=== PATIENT | female | born 1955 | race African-American/Black ===

== ENCOUNTER 2021-10-05 12:14 | Inpatient (IN) ==
[2021-10-05 13:15] LABS: Basophils % 0.3 % (0.0-0.8); Eosinophils % 0.2 % (0.00-10.9); Hematocrit 21.4 VOL% (35.7-47.0); Hemoglobin 6.6 GM/DL (12.0-16.0); Immature Granulocytes % 0.9 %; Immature Granulocytes Absolute 0.08 #; Lymphocytes # 1.3 10*3/uL (1.4-4.0); Lymphocytes % 14.9 % (21.3-54.2); Mean Corpuscular HGB Conc 30.8 GM/DL (32-36); Mean Corpuscular Volume 85.6 FL (87-102); Mean Platelet Volume 11.5 FL (9.6-12.0); Monocytes # 0.3 10*3/uL (0.11-0.8); Monocytes % 3.5 % (1.7-12.7); Neutrophils % 80.2 % (38.7-73.9); Platelet Count 203 T/CUMM (130-400); Red Cell Distribution Width 13.4 % (9.3-17.3); White Blood Count 8.9 T/CUMM (4-12)
[2021-10-05 13:35] LABS: Alanine Aminotransferase 13 U/L (13-56); Albumin 2.6 G/DL (3.4-5.0); Alkaline Phosphatase 60 U/L (45-117); Aspartate Amino Transferase 9 U/L (0-37); Bilirubin,Total < 0.39 MG/DL (0.20-1.00); Blood Urea Nitrogen 107 MG/DL (7-18); Calcium 9.1 MG/DL (8.5-10.1); Carbon Dioxide 19 MMOL/L (21-32); Chloride 104 MMOL/L (98-107); Glucose 301 MG/DL (74-106); Osmolality,Calculated 314.1 MOS/KG (273-304); Sodium 135 MMOL/L (136-145); Total Protein 5.9 G/DL (6.4-8.2)
[2021-10-05] MEDS ORDERED: LACTATED RINGERS 1,000 ML IV ONE (13:39)
[2021-10-05] MEDS ORDERED: PANTOPRAZOLE INJ 80 MG in SODIUM CHLORIDE 0.9% 100 ML IV STA (13:52)
[2021-10-05] MEDS ORDERED: ACETAMINOPHEN 325 MG TABLET PO PRN (14:20)
[2021-10-05] MEDS ORDERED: GLUCAGON 1 MG VIAL IM PRN (14:20)
[2021-10-05] MEDS ORDERED: ONDANSETRON 4 MG/2 ML VIAL IV PRN (14:20)
[2021-10-05] MEDS ORDERED: SODIUM CHLORIDE 0.9% 1,000 ML IV PRN (14:20)
[2021-10-05] MEDS ORDERED: hydrALAZINE 20 MG/1 ML VIAL IV PRN (14:20)
[2021-10-05] MEDS ORDERED: PANTOPRAZOLE 40 MG VIAL IV ONE (14:25)
[2021-10-05] MEDS ORDERED: FLUTICASONE 50 MCG NASAL SPRAY 16 GM BOTTLE BOTH NARES PRN (14:37)
[2021-10-05 14:44] LABS: Amorphous Crystals,Urine Occasional /HPF (Few); RBC,Urine <1 /HPF (0-4); Squamous Epithelial Cell,Urine Occasional /HPF (0-10); Urine Color Light Yellow (Yellow)
[2021-10-05 14:45] LABS: Bilirubin,Urine Negative (Negative); Blood, Urine Negative (Negative); Glucose,Urine (UA) 500 mg/dL (Negative); Ketones,Urine Negative (Negative); Nitrite,Urine Negative (Negative); Protein,Urine Negative (Negative); Urine Appearance Slightly Cloudy (Clear); Urine Urobilinogen 0.2 eU/dL (<2.0)
[2021-10-05] MEDS ORDERED: DEXTROSE 10% 250 ML BAG IV PRN (14:49)
[2021-10-05 14:50] LABS: Barbiturates Screen,Urine Negative (Negative); Benzodiazepines Screen,Urine Negative (Negative); Cannabinoid Screen,Urine Negative (Negative); Opiate Screen,Urine Negative (Negative); Phencyclidine Screen,Urine Negative (Negative)
[2021-10-05] MEDS ORDERED: PANTOPRAZOLE INJ 200 MG in SODIUM CHLORIDE 0.9% 250 ML IV SCH (15:00)
[2021-10-05 16:03] LABS: % Iron Saturation 20.6 % (18-50)
[2021-10-05] MEDS: INSULIN LISPRO 100 UNIT/ML SUBCUT SCH ×2 (17:40→20:38)
[2021-10-05] MEDS: FERROUS SULFATE 325 MG TABLET PO SCH ×2 (17:40→20:39)
[2021-10-05] MEDS: SODIUM CHLORIDE 0.9% 1,000 ML IV SCH ×2 (18:29→23:30)
[2021-10-05 19:57] LABS: Hematocrit 25.5 VOL% (35.7-47.0); Hemoglobin 7.6 GM/DL (12.0-16.0)
[2021-10-05] MEDS: INSULIN GLARGINE 100 UNIT/ML SUBCUT SCH (20:38)
[2021-10-06 02:11] LABS: Hematocrit 26.5 VOL% (35.7-47.0); Hemoglobin 8.6 GM/DL (12.0-16.0)
[2021-10-06 02:31] LABS: Calcium 9.1 MG/DL (8.5-10.1); Osmolality,Calculated 305.5 MOS/KG (273-304); Potassium 3.3 MMOL/L (3.5-5.1); Risk Ratio 2.56
[2021-10-06 05:14] LABS: Basophils % 0.4 % (0.0-0.8); Eosinophils # 0.1 10*3/uL (0.0-0.87); Eosinophils % 1.1 % (0.00-10.9); Hematocrit 25.5 VOL% (35.7-47.0); Hemoglobin 8.3 GM/DL (12.0-16.0); Immature Granulocytes % 0.6 %; Immature Granulocytes Absolute 0.05 #; Lymphocytes # 1.9 10*3/uL (1.4-4.0); Mean Corpuscular HGB Conc 32.5 GM/DL (32-36); Mean Corpuscular Volume 85.9 FL (87-102); Mean Platelet Volume 11.8 FL (9.6-12.0); Monocytes # 0.5 10*3/uL (0.11-0.8); Monocytes % 5.6 % (1.7-12.7); Neutrophils % 69.3 % (38.7-73.9); Platelet Count 172 T/CUMM (130-400); Red Blood Count 2.97 MC/CUMM (3.8-5.5); Red Cell Distribution Width 14.1 % (9.3-17.3); White Blood Count 8.3 T/CUMM (4-12)
[2021-10-06] MEDS: SODIUM CHLORIDE 0.9% 1,000 ML IV SCH ×2 (06:00→21:38)
[2021-10-06 07:57] LABS: Hemoglobin 9.1 GM/DL (12.0-16.0)
[2021-10-06] MEDS ORDERED: POTASSIUM CHLORIDE 20 MEQ TABLET PO ONE (08:00)
[2021-10-06] MEDS: amLODIPine 10 MG TABLET PO SCH (08:54)
[2021-10-06] MEDS: INSULIN LISPRO 100 UNIT/ML SUBCUT SCH ×4 (08:55→21:37)
[2021-10-06] MEDS: PANTOPRAZOLE 40 MG VIAL IV SCH ×2 (10:14→21:36)
[2021-10-06] MEDS: INSULIN GLARGINE 100 UNIT/ML SUBCUT SCH (21:37)
[2021-10-07] MEDS: SODIUM CHLORIDE 0.9% 1,000 ML IV SCH ×3 (00:23→12:22)
[2021-10-07 04:54] LABS: Basophils % 0.4 % (0.0-0.8); Eosinophils # 0.2 10*3/uL (0.0-0.87); Hematocrit 26.1 VOL% (35.7-47.0); Hemoglobin 8.3 GM/DL (12.0-16.0); Immature Granulocytes % 1.2 %; Immature Granulocytes Absolute 0.08 #; Lymphocytes # 2.1 10*3/uL (1.4-4.0); Lymphocytes % 31.2 % (21.3-54.2); Mean Corpuscular HGB Conc 31.8 GM/DL (32-36); Mean Corpuscular Volume 87.3 FL (87-102); Mean Platelet Volume 11.3 FL (9.6-12.0); Monocytes # 0.4 10*3/uL (0.11-0.8); Monocytes % 5.3 % (1.7-12.7); Neutrophils % 58.9 % (38.7-73.9); Platelet Count 169 T/CUMM (130-400); Red Blood Count 2.99 MC/CUMM (3.8-5.5); Red Cell Distribution Width 14.6 % (9.3-17.3); White Blood Count 6.8 T/CUMM (4-12)
[2021-10-07 05:07] LABS: Calcium 8.7 MG/DL (8.5-10.1); Osmolality,Calculated 290.1 MOS/KG (273-304); Potassium 3.5 MMOL/L (3.5-5.1)
[2021-10-07] MEDS: INSULIN LISPRO 100 UNIT/ML SUBCUT SCH ×2 (08:43→12:29)
[2021-10-07] MEDS ORDERED: LIDOCAINE 100 MG/5 ML SYRINGE ONE (09:22)
[2021-10-07] MEDS ORDERED: propofoL 200 MG/20 ML VIAL IV ONE (09:22)
[2021-10-07] MEDS ORDERED: LACTATED RINGERS 1,000 ML IV SCH (09:30)
[2021-10-07] MEDS: amLODIPine 10 MG TABLET PO SCH (10:49)
[2021-10-07] MEDS: PANTOPRAZOLE 40 MG VIAL IV SCH (10:53)
[2021-10-07 11:25] VITALS: BP 150/55
== END 2021-10-07 13:45 | disposition home or self-care (01) | DRG 813 ==
LOC: EDBD → EDUNIT# → N.ED 12:14 → N.3E 14:20 → SUATTDRO 14:20 → N.3E 17:10
PROVIDERS: ADMIT Internal Medicine; ATTEND Internal Medicine

== ENCOUNTER 2021-12-29 14:32 | Inpatient (IN) ==
[2021-12-29] MEDS ORDERED: FUROSEMIDE 40 MG/4 ML VIAL IV STA (17:08)
[2021-12-29] MEDS ORDERED: MORPHINE 2 MG/1 ML SYRINGE IV STA (17:08)
[2021-12-29] MEDS ORDERED: NITROGLYCERIN SL 0.4 MG TABLET SL PRN (17:09)
[2021-12-29 17:41] LABS: Basophils % 0.4 % (0.0-0.8); Eosinophils # 0.1 10*3/uL (0.0-0.87); Hematocrit 32.7 VOL% (35.7-47.0); Hemoglobin 9.9 GM/DL (12.0-16.0); Immature Granulocytes % 0.5 %; Immature Granulocytes Absolute 0.05 #; Lymphocytes # 1.3 10*3/uL (1.4-4.0); Lymphocytes % 13.6 % (21.3-54.2); Mean Corpuscular HGB Conc 30.3 GM/DL (32-36); Mean Corpuscular Volume 83.8 FL (87-102); Mean Platelet Volume 11.8 FL (9.6-12.0); Monocytes # 0.5 10*3/uL (0.11-0.8); Monocytes % 4.8 % (1.7-12.7); Neutrophils % 79.7 % (38.7-73.9); Platelet Count 173 T/CUMM (130-400); Red Cell Distribution Width 14.6 % (9.3-17.3); White Blood Count 9.8 T/CUMM (4-12)
[2021-12-29 17:56] LABS: Alanine Aminotransferase 43 U/L (13-56); Albumin 3.3 G/DL (3.4-5.0); Alkaline Phosphatase 150 U/L (45-117); Aspartate Amino Transferase 38 U/L (0-37); Bilirubin,Total < 0.39 MG/DL (0.20-1.00); Blood Urea Nitrogen 33 MG/DL (7-18); Calcium 9.3 MG/DL (8.5-10.1); Carbon Dioxide 31 MMOL/L (21-32); Chloride 105 MMOL/L (98-107); Glucose 190 MG/DL (74-106); Osmolality,Calculated 288.5 MOS/KG (273-304); Potassium 4.4 MMOL/L (3.5-5.1); Sodium 139 MMOL/L (136-145); Total Protein 7.3 G/DL (6.4-8.2)
[2021-12-29] MEDS ORDERED: ACETAMINOPHEN 325 MG TABLET PO PRN (18:43)
[2021-12-29] MEDS ORDERED: FLUTICASONE 50 MCG NASAL SPRAY 16 GM BOTTLE BOTH NARES PRN (18:43)
[2021-12-29] MEDS ORDERED: DEXTROSE 10% 250 ML BAG IV PRN (18:45)
[2021-12-29] MEDS ORDERED: MAGNESIUM SULF RIDER 2 GM/50 ML PREMIX IV PRN (18:45)
[2021-12-29] MEDS ORDERED: DEXTROSE 50% 25 GM/50 ML VIAL IV PRN (18:45)
[2021-12-29] MEDS ORDERED: ONDANSETRON 4 MG/2 ML VIAL IV PRN (18:45)
[2021-12-29] MEDS ORDERED: hydrALAZINE 20 MG/1 ML VIAL IV PRN (18:45)
[2021-12-29] MEDS ORDERED: MAGNESIUM SULF RIDER 4 GM/100 ML PREMIX IV PRN (18:45)
[2021-12-29] MEDS ORDERED: GLUCAGON 1 MG VIAL IM PRN ×2 (18:45)
[2021-12-29] MEDS: ALBUTEROL/IPRATROPIUM 3 ML NEB RESP TX SCH (20:30)
[2021-12-29] MEDS ORDERED: APIXABAN 5 MG TABLET PO SCH (21:00)
[2021-12-29] MEDS: PANTOPRAZOLE 40 MG TABLET PO SCH (21:21)
[2021-12-29] MEDS: FUROSEMIDE 40 MG/4 ML VIAL IV SCH (21:21)
[2021-12-29] MEDS: INSULIN LISPRO 100 UNIT/ML SUBCUT SCH (22:35)
[2021-12-30] MEDS: ALBUTEROL/IPRATROPIUM 3 ML NEB RESP TX SCH ×4 (00:20→19:15)
[2021-12-30 04:42] LABS: Basophils % 0.3 % (0.0-0.8); Eosinophils # 0.1 10*3/uL (0.0-0.87); Eosinophils % 2.3 % (0.00-10.9); Hematocrit 26.8 VOL% (35.7-47.0); Hemoglobin 8.1 GM/DL (12.0-16.0); Immature Granulocytes % 0.3 %; Immature Granulocytes Absolute 0.02 #; Lymphocytes # 1.4 10*3/uL (1.4-4.0); Lymphocytes % 22.9 % (21.3-54.2); Mean Corpuscular HGB Conc 30.2 GM/DL (32-36); Mean Corpuscular Volume 83.8 FL (87-102); Monocytes # 0.5 10*3/uL (0.11-0.8); Neutrophils % 66.2 % (38.7-73.9); Platelet Count 151 T/CUMM (130-400); Red Cell Distribution Width 14.5 % (9.3-17.3); White Blood Count 6.2 T/CUMM (4-12)
[2021-12-30 05:17] LABS: Calcium 9.3 MG/DL (8.5-10.1); Osmolality,Calculated 294.3 MOS/KG (273-304); Potassium 3.5 MMOL/L (3.5-5.1); Risk Ratio 1.77; Thyroid Stimulating Hormone 3.42 uIU/ml (0.358-3.74); VLDL Cholesterol 16.4 MG/DL
[2021-12-30] MEDS: INSULIN LISPRO 100 UNIT/ML SUBCUT SCH ×4 (07:54→20:33)
[2021-12-30] MEDS: FUROSEMIDE 40 MG/4 ML VIAL IV SCH (08:12)
[2021-12-30] MEDS ORDERED: LOSARTAN 50 MG TABLET PO SCH (09:00)
[2021-12-30] MEDS ORDERED: MELOXICAM 7.5 MG TABLET PO SCH (09:00)
[2021-12-30] MEDS ORDERED: hydroCHLOROthiazide 12.5 MG CAPSULE PO SCH (09:00)
[2021-12-30] MEDS ORDERED: FERROUS SULFATE 325 MG TABLET PO SCH (09:00)
[2021-12-30] MEDS: CETIRIZINE 10 MG TABLET PO SCH (09:58)
[2021-12-30] MEDS: POTASSIUM CHLORIDE 20 MEQ TABLET PO SCH (09:58)
[2021-12-30] MEDS: PANTOPRAZOLE 40 MG TABLET PO SCH ×2 (09:58→20:32)
[2021-12-30] MEDS: amLODIPine 10 MG TABLET PO SCH (09:58)
[2021-12-30] MEDS: BISOPROLOL 5 MG TABLET PO SCH (09:58)
[2021-12-30 12:32] LABS: % Iron Saturation 10.8 % (18-50); Ferritin 49.1 ng/mL (8-252)
[2021-12-30 13:38] LABS: Folate 23.09 NG/ML (5.38-24.0)
[2021-12-31] MEDS: ALBUTEROL/IPRATROPIUM 3 ML NEB RESP TX SCH ×4 (00:15→19:26)
[2021-12-31 09:34] LABS: Basophils % 0.6 % (0.0-0.8); Eosinophils # 0.2 10*3/uL (0.0-0.87); Eosinophils % 3.1 % (0.00-10.9); Hematocrit 26.8 VOL% (35.7-47.0); Immature Granulocytes % 0.4 %; Immature Granulocytes Absolute 0.02 #; Lymphocytes # 1.3 10*3/uL (1.4-4.0); Lymphocytes % 23.3 % (21.3-54.2); Mean Corpuscular HGB Conc 29.9 GM/DL (32-36); Mean Corpuscular Volume 84.5 FL (87-102); Mean Platelet Volume 11.3 FL (9.6-12.0); Monocytes # 0.4 10*3/uL (0.11-0.8); Monocytes % 6.7 % (1.7-12.7); Neutrophils % 65.9 % (38.7-73.9); Platelet Count 166 T/CUMM (130-400); Red Blood Count 3.17 MC/CUMM (3.8-5.5); Red Cell Distribution Width 14.6 % (9.3-17.3); White Blood Count 5.4 T/CUMM (4-12)
[2021-12-31] MEDS: CETIRIZINE 10 MG TABLET PO SCH (09:41)
[2021-12-31] MEDS: FUROSEMIDE 40 MG/4 ML VIAL IV SCH (09:41)
[2021-12-31] MEDS: PANTOPRAZOLE 40 MG TABLET PO SCH ×2 (09:41→21:22)
[2021-12-31] MEDS: POTASSIUM CHLORIDE 20 MEQ TABLET PO SCH (09:41)
[2021-12-31] MEDS: INSULIN LISPRO 100 UNIT/ML SUBCUT SCH ×4 (09:42→21:22)
[2021-12-31] MEDS: BISOPROLOL 5 MG TABLET PO SCH (09:42)
[2021-12-31 09:51] LABS: Calcium 9.2 MG/DL (8.5-10.1); Osmolality,Calculated 295.7 MOS/KG (273-304); Potassium 3.7 MMOL/L (3.5-5.1)
[2021-12-31] MEDS: amLODIPine 10 MG TABLET PO SCH (09:56)
[2021-12-31] MEDS: FERRIC GLUCONATE COMPLEX 125 MG in SODIUM CHLORIDE 0.9% 100 ML IV SCH (09:57)
[2021-12-31] MEDS ORDERED: AZITHROMYCIN 250 MG TABLET PO ONE (12:00)
[2021-12-31] MEDS: cefTRIAXone 1,000 MG in SODIUM CHLORIDE 0.9% 100 ML IV SCH (13:03)
[2022-01-01] MEDS: ALBUTEROL/IPRATROPIUM 3 ML NEB RESP TX SCH ×4 (00:20→18:57)
[2022-01-01 06:15] LABS: Basophils % 0.5 % (0.0-0.8); Eosinophils # 0.2 10*3/uL (0.0-0.87); Eosinophils % 2.7 % (0.00-10.9); Hematocrit 24.4 VOL% (35.7-47.0); Hemoglobin 7.5 GM/DL (12.0-16.0); Immature Granulocytes % 0.3 %; Immature Granulocytes Absolute 0.02 #; Lymphocytes # 1.5 10*3/uL (1.4-4.0); Lymphocytes % 25.9 % (21.3-54.2); Mean Corpuscular HGB Conc 30.7 GM/DL (32-36); Mean Platelet Volume 10.9 FL (9.6-12.0); Monocytes # 0.5 10*3/uL (0.11-0.8); Monocytes % 8.2 % (1.7-12.7); Neutrophils % 62.4 % (38.7-73.9); Platelet Count 145 T/CUMM (130-400); Red Blood Count 2.94 MC/CUMM (3.8-5.5); Red Cell Distribution Width 14.7 % (9.3-17.3); White Blood Count 5.8 T/CUMM (4-12)
[2022-01-01 06:44] LABS: Alanine Aminotransferase 22 U/L (13-56); Albumin 2.8 G/DL (3.4-5.0); Alkaline Phosphatase 99 U/L (45-117); Aspartate Amino Transferase 14 U/L (0-37); Bilirubin,Total < 0.39 MG/DL (0.20-1.00); Blood Urea Nitrogen 49 MG/DL (7-18); Calcium 9.3 MG/DL (8.5-10.1); Carbon Dioxide 26 MMOL/L (21-32); Chloride 108 MMOL/L (98-107); Glucose 120 MG/DL (74-106); Osmolality,Calculated 296.1 MOS/KG (273-304); Potassium 3.6 MMOL/L (3.5-5.1); Sodium 142 MMOL/L (136-145); Total Protein 6.2 G/DL (6.4-8.2)
[2022-01-01] MEDS: INSULIN LISPRO 100 UNIT/ML SUBCUT SCH ×4 (08:36→21:00)
[2022-01-01] MEDS: FERRIC GLUCONATE COMPLEX 125 MG in SODIUM CHLORIDE 0.9% 100 ML IV SCH (08:53)
[2022-01-01] MEDS: CETIRIZINE 10 MG TABLET PO SCH (08:54)
[2022-01-01] MEDS: POTASSIUM CHLORIDE 20 MEQ TABLET PO SCH (08:54)
[2022-01-01] MEDS: amLODIPine 10 MG TABLET PO SCH (08:54)
[2022-01-01] MEDS: PANTOPRAZOLE 40 MG TABLET PO SCH ×2 (08:54→21:41)
[2022-01-01] MEDS: BISOPROLOL 5 MG TABLET PO SCH (08:54)
[2022-01-01] MEDS: FUROSEMIDE 40 MG/4 ML VIAL IV SCH (08:55)
[2022-01-01] MEDS: AZITHROMYCIN 250 MG TABLET PO SCH (08:55)
[2022-01-01] MEDS: POLYETHYLENE GLYCOL POWDER 17 GM PACK PO SCH (10:10)
[2022-01-01] MEDS: DOCUSATE SODIUM 100 MG CAPSULE PO SCH ×2 (10:10→21:41)
[2022-01-01 11:06] LABS: Hematocrit 25.8 VOL% (35.7-47.0); Hemoglobin 7.8 GM/DL (12.0-16.0)
[2022-01-01] MEDS: cefTRIAXone 1,000 MG in SODIUM CHLORIDE 0.9% 100 ML IV SCH (11:51)
[2022-01-02 05:29] LABS: Basophils % 0.4 % (0.0-0.8); Eosinophils # 0.2 10*3/uL (0.0-0.87); Eosinophils % 3.1 % (0.00-10.9); Hemoglobin 7.6 GM/DL (12.0-16.0); Immature Granulocytes % 0.7 %; Immature Granulocytes Absolute 0.04 #; Lymphocytes # 1.4 10*3/uL (1.4-4.0); Lymphocytes % 25.6 % (21.3-54.2); Mean Corpuscular HGB Conc 30.4 GM/DL (32-36); Mean Corpuscular Volume 84.2 FL (87-102); Mean Platelet Volume 11.6 FL (9.6-12.0); Monocytes # 0.5 10*3/uL (0.11-0.8); Monocytes % 8.9 % (1.7-12.7); Neutrophils % 61.3 % (38.7-73.9); Platelet Count 153 T/CUMM (130-400); Red Blood Count 2.97 MC/CUMM (3.8-5.5); Red Cell Distribution Width 14.9 % (9.3-17.3); White Blood Count 5.5 T/CUMM (4-12)
[2022-01-02 05:51] LABS: Calcium 9.5 MG/DL (8.5-10.1); Osmolality,Calculated 293.4 MOS/KG (273-304); Potassium 3.9 MMOL/L (3.5-5.1)
[2022-01-02] MEDS: ALBUTEROL/IPRATROPIUM 3 ML NEB RESP TX SCH (07:20)
[2022-01-02] MEDS: PANTOPRAZOLE 40 MG TABLET PO SCH (09:14)
[2022-01-02] MEDS: AZITHROMYCIN 250 MG TABLET PO SCH (09:14)
[2022-01-02] MEDS: BISOPROLOL 5 MG TABLET PO SCH (09:14)
[2022-01-02] MEDS: POTASSIUM CHLORIDE 20 MEQ TABLET PO SCH (09:14)
[2022-01-02] MEDS: amLODIPine 10 MG TABLET PO SCH (09:14)
[2022-01-02] MEDS: DOCUSATE SODIUM 100 MG CAPSULE PO SCH (09:14)
[2022-01-02] MEDS: CETIRIZINE 10 MG TABLET PO SCH (09:15)
[2022-01-02] MEDS: POLYETHYLENE GLYCOL POWDER 17 GM PACK PO SCH (09:15)
[2022-01-02] MEDS: INSULIN LISPRO 100 UNIT/ML SUBCUT SCH (09:16)
[2022-01-02] MEDS: FERRIC GLUCONATE COMPLEX 125 MG in SODIUM CHLORIDE 0.9% 100 ML IV SCH (09:24)
[2022-01-02] MEDS: FUROSEMIDE 40 MG/4 ML VIAL IV SCH (09:24)
[2022-01-02 11:32] VITALS: BP 145/71
== END 2022-01-02 13:02 | disposition home health service (06) | DRG 291 ==
LOC: N.ED 14:32 → N.EDINP 18:45 → N.TELEN 12-30 14:15
PROVIDERS: ADMIT Internal Medicine; ATTEND Internal Medicine

== ENCOUNTER 2022-02-08 17:21 | Inpatient (IN) ==
[2022-02-08 18:06] LABS: Basophils % 0.4 % (0.0-0.8); Eosinophils # 0.2 10*3/uL (0.0-0.87); Eosinophils % 2.5 % (0.00-10.9); Hematocrit 36.3 VOL% (35.7-47.0); Hemoglobin 10.7 GM/DL (12.0-16.0); Immature Granulocytes % 0.3 %; Immature Granulocytes Absolute 0.02 #; Lymphocytes # 2.4 10*3/uL (1.4-4.0); Lymphocytes % 34.1 % (21.3-54.2); Mean Corpuscular HGB Conc 29.5 GM/DL (32-36); Mean Corpuscular Volume 84.8 FL (87-102); Mean Platelet Volume 9.7 FL (9.6-12.0); Monocytes # 0.4 10*3/uL (0.11-0.8); Monocytes % 5.3 % (1.7-12.7); Neutrophils % 57.4 % (38.7-73.9); Platelet Count 229 T/CUMM (130-400); Red Blood Count 4.28 MC/CUMM (3.8-5.5); Red Cell Distribution Width 16.2 % (9.3-17.3); White Blood Count 7.1 T/CUMM (4-12)
[2022-02-08 18:19] LABS: Alanine Aminotransferase 40 U/L (13-56); Albumin 3.5 G/DL (3.4-5.0); Alkaline Phosphatase 167 U/L (45-117); Aspartate Amino Transferase 34 U/L (0-37); Bilirubin,Total < 0.39 MG/DL (0.20-1.00); Blood Urea Nitrogen 35 MG/DL (7-18); Calcium 9.4 MG/DL (8.5-10.1); Carbon Dioxide 27 MMOL/L (21-32); Chloride 110 MMOL/L (98-107); Glucose 203 MG/DL (74-106); Potassium 3.6 MMOL/L (3.5-5.1); Sodium 143 MMOL/L (136-145); Total Protein 7.9 G/DL (6.4-8.2)
[2022-02-08] MEDS ORDERED: NITROGLYCERIN SL 0.4 MG TABLET SL PRN (19:06)
[2022-02-08] MEDS ORDERED: hydrALAZINE 20 MG/1 ML VIAL IV STA (19:23)
[2022-02-08] MEDS ORDERED: FUROSEMIDE 40 MG/4 ML VIAL IV STA (19:23)
[2022-02-08] MEDS ORDERED: NITROGLYCERIN DRIP 50 MG/250 ML BOTTLE IV SCH (19:30)
[2022-02-08 19:55] LABS: INR 0.9; PT Patient Result 10.2 SECS (10.1-12.1); Partial Thromboplastin Time 24.3 SECS (23.7-32.9)
[2022-02-08 22:00] LABS: Arterial Base Excess iSTAT 1 MMOL/L (-2.5-2.5); Arterial Bicarbonate iSTAT 25.5 MMOL/L (20-26); Arterial O2 Saturation iSTAT 99 % (95-100); Arterial PCO2 iSTAT 39 MM HG (35-48); Arterial PO2 iSTAT 136 MM HG (80-95); Arterial Total CO2 iSTAT 27 MMO/L (23-27); Arterial pH iSTAT 7.422 (7.35-7.45)
[2022-02-08] MEDS ORDERED: ACETAMINOPHEN 325 MG TABLET PO PRN (23:50)
[2022-02-08] MEDS ORDERED: ALBUTEROL 2.5 MG/3 ML NEB RESP TX PRN (23:50)
[2022-02-08] MEDS ORDERED: hydrALAZINE 20 MG/1 ML VIAL IV PRN (23:50)
[2022-02-08] MEDS ORDERED: GLUCAGON 1 MG VIAL IM PRN (23:50)
[2022-02-08] MEDS ORDERED: guaiFENesin/DM ER 600-30 MG TABLET PO PRN (23:50)
[2022-02-08] MEDS ORDERED: ONDANSETRON 4 MG/2 ML VIAL IV PRN (23:50)
[2022-02-08] MEDS ORDERED: NICOTINE 21 MG/24 HR PATCH TRANSDERM PRN (23:50)
[2022-02-08] MEDS ORDERED: ZALEPLON 5 MG CAPSULE PO PRN (23:50)
[2022-02-08] MEDS ORDERED: diphenhydrAMINE CAP 25 MG CAPSULE PO PRN (23:50)
[2022-02-09] MEDS ORDERED: FLUTICASONE 50 MCG NASAL SPRAY 16 GM BOTTLE BOTH NARES PRN (00:03)
[2022-02-09] MEDS ORDERED: DEXTROSE 10% 250 ML BAG IV PRN (00:04)
[2022-02-09] MEDS: ALBUTEROL/IPRATROPIUM 3 ML NEB RESP TX SCH ×4 (01:01→19:37)
[2022-02-09 05:21] LABS: Basophils % 0.3 % (0.0-0.8); Eosinophils # 0.1 10*3/uL (0.0-0.87); Eosinophils % 0.9 % (0.00-10.9); Hematocrit 26.5 VOL% (35.7-47.0); Hemoglobin 8.2 GM/DL (12.0-16.0); Immature Granulocytes % 0.3 %; Immature Granulocytes Absolute 0.02 #; Lymphocytes # 1.3 10*3/uL (1.4-4.0); Mean Corpuscular HGB Conc 30.9 GM/DL (32-36); Mean Platelet Volume 10.3 FL (9.6-12.0); Monocytes # 0.4 10*3/uL (0.11-0.8); Monocytes % 6.4 % (1.7-12.7); Neutrophils % 73.1 % (38.7-73.9); Platelet Count 193 T/CUMM (130-400); Red Blood Count 3.27 MC/CUMM (3.8-5.5); Red Cell Distribution Width 16.1 % (9.3-17.3); White Blood Count 6.7 T/CUMM (4-12)
[2022-02-09 05:50] LABS: Alanine Aminotransferase 27 U/L (13-56); Albumin 2.5 G/DL (3.4-5.0); Alkaline Phosphatase 111 U/L (45-117); Aspartate Amino Transferase 17 U/L (0-37); Bilirubin,Total < 0.39 MG/DL (0.20-1.00); Blood Urea Nitrogen 33 MG/DL (7-18); Carbon Dioxide 26 MMOL/L (21-32); Chloride 113 MMOL/L (98-107); Glucose 217 MG/DL (74-106); Osmolality,Calculated 303.6 MOS/KG (273-304); Potassium 3.2 MMOL/L (3.5-5.1); Sodium 146 MMOL/L (136-145); Total Protein 5.9 G/DL (6.4-8.2)
[2022-02-09] MEDS ORDERED: FUROSEMIDE 40 MG/4 ML VIAL IV SCH (08:00)
[2022-02-09] MEDS ORDERED: amLODIPine 10 MG TABLET PO SCH (09:00)
[2022-02-09] MEDS ORDERED: SPIRONOLACTONE 25 MG TABLET PO SCH (09:00)
[2022-02-09] MEDS: carvediloL 6.25 MG TABLET PO SCH ×2 (10:54→21:18)
[2022-02-09] MEDS: hydroCHLOROthiazide 25 MG TABLET PO SCH (10:54)
[2022-02-09] MEDS: FUROSEMIDE 40 MG/4 ML VIAL IV SCH ×2 (10:55→16:46)
[2022-02-09] MEDS: HEPARIN 5,000 UNIT/1 ML VIAL SUBCUT SCH ×2 (10:55→21:18)
[2022-02-09] MEDS: INSULIN LISPRO 100 UNIT/ML SUBCUT SCH ×4 (11:02→21:19)
[2022-02-09] MEDS: POTASSIUM CHLORIDE 20 MEQ TABLET PO SCH (11:26)
[2022-02-09] MEDS: CETIRIZINE 10 MG TABLET PO SCH (11:27)
[2022-02-09] MEDS: DOCUSATE SODIUM 100 MG CAPSULE PO SCH ×2 (11:28→21:18)
[2022-02-09] MEDS: FERROUS SULFATE 325 MG TABLET PO SCH ×2 (11:28→21:18)
[2022-02-09] MEDS: LOSARTAN 50 MG TABLET PO SCH (11:28)
[2022-02-10] MEDS: ALBUTEROL/IPRATROPIUM 3 ML NEB RESP TX SCH ×2 (00:34→07:51)
[2022-02-10 04:35] LABS: Basophils % 0.5 % (0.0-0.8); Eosinophils # 0.2 10*3/uL (0.0-0.87); Eosinophils % 3.9 % (0.00-10.9); Hematocrit 27.5 VOL% (35.7-47.0); Hemoglobin 8.2 GM/DL (12.0-16.0); Immature Granulocytes % 0.5 %; Immature Granulocytes Absolute 0.02 #; Lymphocytes # 1.6 10*3/uL (1.4-4.0); Lymphocytes % 39.2 % (21.3-54.2); Mean Corpuscular HGB Conc 29.8 GM/DL (32-36); Mean Corpuscular Volume 83.1 FL (87-102); Mean Platelet Volume 9.9 FL (9.6-12.0); Monocytes # 0.3 10*3/uL (0.11-0.8); Monocytes % 7.5 % (1.7-12.7); Neutrophils % 48.4 % (38.7-73.9); Platelet Count 172 T/CUMM (130-400); Red Blood Count 3.31 MC/CUMM (3.8-5.5); Red Cell Distribution Width 16.5 % (9.3-17.3); White Blood Count 4.1 T/CUMM (4-12)
[2022-02-10 04:53] LABS: Alanine Aminotransferase 21 U/L (13-56); Albumin 2.5 G/DL (3.4-5.0); Alkaline Phosphatase 99 U/L (45-117); Aspartate Amino Transferase 15 U/L (0-37); Bilirubin,Total < 0.39 MG/DL (0.20-1.00); Blood Urea Nitrogen 36 MG/DL (7-18); Calcium 9.3 MG/DL (8.5-10.1); Carbon Dioxide 29 MMOL/L (21-32); Chloride 111 MMOL/L (98-107); Glucose 71 MG/DL (74-106); Osmolality,Calculated 295.6 MOS/KG (273-304); Potassium 3.7 MMOL/L (3.5-5.1); Sodium 146 MMOL/L (136-145); Total Protein 5.8 G/DL (6.4-8.2)
[2022-02-10] MEDS: INSULIN LISPRO 100 UNIT/ML SUBCUT SCH ×2 (07:51→12:31)
[2022-02-10] MEDS: FUROSEMIDE 40 MG/4 ML VIAL IV SCH (08:37)
[2022-02-10] MEDS: HEPARIN 5,000 UNIT/1 ML VIAL SUBCUT SCH (09:03)
[2022-02-10] MEDS: CETIRIZINE 10 MG TABLET PO SCH (09:04)
[2022-02-10] MEDS: FERROUS SULFATE 325 MG TABLET PO SCH (09:04)
[2022-02-10] MEDS: hydroCHLOROthiazide 25 MG TABLET PO SCH (09:04)
[2022-02-10] MEDS: POTASSIUM CHLORIDE 20 MEQ TABLET PO SCH (09:04)
[2022-02-10] MEDS: LOSARTAN 50 MG TABLET PO SCH (09:04)
[2022-02-10] MEDS: DOCUSATE SODIUM 100 MG CAPSULE PO SCH (09:04)
[2022-02-10] MEDS: carvediloL 6.25 MG TABLET PO SCH (09:04)
[2022-02-10 11:49] VITALS: BP 139/82
== END 2022-02-10 15:02 | disposition home or self-care (01) | DRG 291 ==
LOC: EDBD 17:21 → EDUNIT# 17:21 → N.ED 17:21 → N.EDINP 23:50 → N.TELES 02-09 01:16
PROVIDERS: ADMIT Internal Medicine; ATTEND Internal Medicine